=== PATIENT | female | born 1970 | race Caucasian/White ===

== ENCOUNTER 2019-11-02 06:03 | Day surgery (SDC) | payer BC ==
[~2019-11-02] VITALS: Ht 160 cm; Wt 86.6 kg
[2019-11-02 06:20] LABS: HCG,QUAL RESULT NEGATIVE (NEGATIVE)
[2019-11-02] MEDS ORDERED: CEFAZOLIN SOD 2 GM in D5W 50 ML IV ONE (07:00)
[2019-11-02] MEDS ORDERED: MORPHINE 4 MG/ML INJ. SYRINGE IVP PRN (07:45)
[2019-11-02] MEDS ORDERED: HYDROmorphone 1 MG INJ. 1 MG/ML AMPUL IVP PRN (07:45)
[2019-11-02] MEDS ORDERED: MEPERIDINE HCL/PF 25 MG/ML DISP.SYRIN IVP PRN (07:45)
[2019-11-02] MEDS ORDERED: METOCLOPRAMIDE HCL 10 MG/2 ML VIAL IVP PRN (07:45)
[2019-11-02] MEDS ORDERED: ONDANSETRON HCL 4 MG/2 ML VIAL IVP PRN ×2 (07:45→12:45)
[2019-11-02] MEDS ORDERED: KETAMINE HCL 500 MG/10 ML VIAL ONE (08:27)
[2019-11-02] MEDS ORDERED: PROPOFOL 200MG/ 20ML VIAL (DIPRIVAN) IV ONE (11:58)
[2019-11-02] MEDS ORDERED: MIDAZOLAM HCL 5 MG/ML VIAL (VERSED) IV ONE (11:58)
[2019-11-02] MEDS ORDERED: SEVOFLURANE 15 MIN GAS INH ONE (11:58)
[2019-11-02] MEDS ORDERED: BACITRACIN 1 GM OINT TP ONE (11:58)
[2019-11-02] MEDS ORDERED: SUCCINYLCHOLINE CHLORIDE 20 MG/ML(QUELICIN) ONE (11:58)
[2019-11-02] MEDS ORDERED: NS IRRIG SOLN 1000 ML IR ONE (11:58)
[2019-11-02] MEDS ORDERED: LIDOCAINE/EPI 1% 1:100000 20 ML VIAL INJ ONE (11:58)
[2019-11-02] MEDS ORDERED: ONDANSETRON HCL 4 MG/2 ML VIAL ONE ×2 (11:58→14:19)
[2019-11-02] MEDS ORDERED: LR 1,000 ML IV.SOLN IV ONE (11:58)
[2019-11-02] MEDS ORDERED: fentaNYL CITRATE/PF 100 MCG/2 ML AMP ONE (11:58)
[2019-11-02] MEDS ORDERED: DEXAMETHASONE SOD PHOSPHATE 4 MG/ML VIAL ONE (11:58)
[2019-11-02] MEDS ORDERED: HYDROcodone/ACETAMIN 5-325 MG TAB (NORCO/ VICODIN) PO PRN (12:45)
[2019-11-02] MEDS ORDERED: ONDANSETRON 4 MG ODT TAB PO PRN (12:45)
[2019-11-02] MEDS ORDERED: HYDROmorphone 1 MG INJ. 1 MG/ML AMPUL ONE (13:06)
[2019-11-02 13:45] VITALS: BP_SYST 126
[2019-11-02] MEDS ORDERED: ONDANSETRON HCL 4 MG/2 ML VIAL IVP ONE (14:05)
[2019-11-02] MEDS ORDERED: HYDROcodone/ACETAMIN 5-325 MG TAB (NORCO/ VICODIN) ONE (14:19)
[2019-11-02] MEDS ORDERED: HYDROcodone/ACETAMIN 5-325 MG TAB (NORCO/ VICODIN) PO ONE (14:30)
== END 2019-11-02 15:50 | disposition home or self-care (01) ==
LOC: SDS 06:03 → SMU 06:10 → EDSTATUS 10:18 → SDS 15:50
PROVIDERS: ATTEND Otolaryngology
DX: E04.1 Nontoxic single thyroid nodule (principal); C73 Malignant neoplasm of thyroid gland
CPT/HCPCS: 60220; 84703; 88307; C1782; J0330; J0690; J1100; J1170; J2250; J2405; J2704; J3010; J7060; J7120; U0003